=== PATIENT | female | born 1965 | race Caucasian/White ===

== ENCOUNTER 2019-05-27 19:42 | Emergency (ER) | payer OTHER ==
[~2019-05-27] VITALS: Ht 154.9 cm; Wt 93.4 kg
[2019-05-27 19:51] VITALS: BP 160/90
--- NOTE | 2019-05-27 19:53 | NUR ---
TO LOBBY A/W BED , XRAY AMBULATORY
--- NOTE | 2019-05-27 21:12 | NUR ---
54 Y/O F BIB S/P SLIP AND FALL. AAOX4. PT SEEN HOLDING R ARM. 07/20 R SHOULDER PAIN, ACHIGN AND THROBBING. SLIP AND FALL OCCURED APPROXIMATELY AT 1900. PER PT "I WAS WALKING TO THE BATHROOM WHEN I TRIPPED OVER A CHAIR AND FELL ON MY R SHOULDER." RADIAL PULSES FELT BILATERALLY. +CMS. SKIN PINK/DRY/INTACT. LIMITED ROM TO R SHOULDER. FAMILY AT BEDSIDE. BEDRAILS X2 UP. BED IN LOWEST POSTION. WILL CONTINUE TO MONITOR.
[2019-05-27] MEDS ORDERED: KETAMINE 10 MG/ML UD SYR **ER IVP ONE (21:15)
[2019-05-27] MEDS ORDERED: NACL 0.9% 1,000 ML IV ONE (21:15)
[2019-05-27] MEDS ORDERED: MIDAZOLAM 2 MG/2 ML VIAL IVP ONE (21:15)
--- NOTE | 2019-05-27 21:40 | NUR ---
CONSENT FOR CONCSIOUS SEDATION SIGNED.
--- NOTE | 2019-05-27 21:50 | NUR ---
TIME OUT CALLED FOR REDUCTION OF R SHOULDER.
--- NOTE | 2019-05-27 22:05 | NUR ---
RAD AT BEDSIDE.
--- NOTE | 2019-05-27 22:05 | NUR ---
SLLING SIZE MEDIUM PLACED ON PT R ARM
--- NOTE | 2019-05-27 22:08 | NUR ---
PT SEEN MORE ALERT. ABLE TO RESPOND APPROPIATELY TO QUESTIONS. PERRL PRESENT.
--- NOTE | 2019-05-27 22:10 | NUR ---
PT STILL C/O R SHOULDER PAIN. R SHOULDER NOT IN PLACE. WEIGHT APPLIED TO R HAND TO WEIGH DOWN R ARM. PT GRAIMACED AND STATED " I FELT A POP." DR. D EDIOS MADE AWARE.
[2019-05-27] MEDS ORDERED: KETOROLAC 30 MG/ML VIAL IVP ONE (22:25)
[2019-05-27 23:30] VITALS: BP 142/68
--- NOTE | 2019-05-27 23:30 | NUR ---
PT AAOX4. ABLE TO SPEK FULL SENTENCES. PT SEEN HAVING CONVERSATION WITH FAMILY AT BEDSIDE. VSS. PAIN HAS DECREASED TO 5/10. WILL CONTINUE TO MONITOR.
--- NOTE | 2019-05-29 09:06 | NUR ---
Late entry. 0.9 NS continued until 2300.
== END 2019-05-27 23:50 | disposition home or self-care (01) ==
LOC: MED 19:42
DX: S43.004A Unspecified dislocation of right shoulder joint, initial encounter (principal); E11.9 Type 2 diabetes mellitus without complications; W01.0XXA Fall on same level from slipping, tripping and stumbling without subsequent striking against object, initial encounter; Y93.89 Activity, other specified; Y92.89 Other specified places as the place of occurrence of the external cause; Y99.8 Other external cause status
CPT/HCPCS: 23650; 73030; 96374; 99152; 99285; G0500; J1885; J2250; J7030; Q0092

== ENCOUNTER 2023-11-19 17:34 | Emergency (ER) | payer OTHER | END 2023-11-19 19:42 | disposition left against medical advice (07) | LOC: MED 17:34 | DX: E11.65 Type 2 diabetes mellitus with hyperglycemia (principal); Z53.21 Procedure and treatment not carried out due to patient leaving prior to being seen by health care provider ==